=== PATIENT | male | born 1955 | race Caucasian/White ===

== ENCOUNTER 2019-06-15 09:41 | Emergency (ER) | payer OTHER, SELFPAY ==
[2019-06-15 09:42] VITALS: BP 129/73; PULSE 74; RESP 17; TEMP 36.1; O2SAT 97; BMI 32.3
--- NOTE | 2019-06-15 09:52 | RAD_ITS ---
STUDY: X-RAY - LEFT KNEE REASON FOR EXAM: Male, 63 years old. FALL FROM LADDER YESTERDAY, SWELLING AND PAIN, UNABLE TO BEAR WEIGHT TECHNIQUE: 4 view(s) of the knee. COMPARISON: None. FINDINGS: Normal visualized distal femur. Normal visualized proximal tibia and fibula. Normal proximal tibiofibular articulation. There is mild degenerative arthrosis of the medial femorotibial compartment. Normal lateral femorotibial compartment. There is mild degenerative arthrosis of the patellofemoral articulation. Minimal joint effusion. RAD/Knee 4 or More Views IMPRESSION: Degenerative arthrosis. Electronically Signed: Milo Cabrera, at 10:39 EST , Service support ,
--- NOTE | 2019-06-15 09:55 | ED.DCSUM_ITS ---
History of Present Illness Chief Complaint: Lower Extremity Injury Informant: Patient Onset: Yesterday Context: Gradual Onset Timing: Continuous Current Severity: Moderate Maximum Severity: Severe Narrative: The patient presents to the emergency department with left knee injury. He states that he was on a ladder yesterday. He was on the second or third step. The ladder was on soft ground and he lost his balance. He fell to the ground, landing on his left knee. He states since then, he is not been able to bear weight on it. He states he feels like he cannot extend the leg. He has not taken anything for pain. He did not strike his head. He is not on anticoagulants. Prior similar symptoms: No Recent Illness/Hospitalization: No Past Medical History - Allergies and Home Meds Allergies/Adverse Reactions: Allergies acetaminophen Allergy (Verified 06/15/19 09:42) Swelling Primary Care Physician: ANNIE,DEFINED [NON-STAFF] - Prior records reviewed: Yes Past Medical History: None Surgical History: noncontributory Smoking Status: Never smoker Review of Systems General: Denies: Chills, Fever, Sweats Eyes: Denies: Visual changes - bilaterally, Diplopia ENT: Denies: Rhinorrhea, Sore throat Cardiovascular: Denies: Chest pain, Palpitations Respiratory: Denies: Dyspnea, Cough, Dyspnea on exertion Gastrointestinal: Denies: Abdominal pain, Nausea, Vomiting, Diarrhea, Melena, Hematochezia Genitourinary: Denies: Dysuria, Hematuria, Frequency Musculoskeletal: Denies: Back pain, Extremity Pain Skin: Denies: Rash, Wounds Neurological: Denies: Headache, Weakness, Numbness Physical Exam Vital Signs/Narrative: Vital Signs Temp Pulse Resp BP Pulse Ox 06/15/19 09:42 97.0 F L 74 17 129/73 H 97 Inital Vital Signs reviewed: Yes General: Well nourished, Well developed, No Acute Distress Head: Normocephalic, Atraumatic Eyes: Perrl, EOMI ENT: Moist mucous membranes, No rhinorrhea Neck: Supple, Nontender Cardiovascular: Regular rate, Regular rhythm, No murmurs Respiratory: No distress, CTA bilaterally, Chest nontender Abdomen: Soft, Nontender, Nondistended, Normal bowel sounds Back: Nontender, Normal Inspection Extremities: No edema, Tenderness - Tenderness over the left knee. Unable to extend secondary to pain. Normal pulses. Skin: Normal color, No rash Neurological: Alert, Oriented x3, Cranial nerves II-XII grossly intact, Normal Strength, Normal Sensation Psychological: Normal affect, Normal Mood Diagnostic/Tx/Re-eval - Medical Decision Making Clinically, I do have suspicion for patellar tendon rupture. The patient's pain is in the posterior aspect of the knee, but he cannot extend the knee and does have a small effusion. There is no gross laxity of the knee. Plain films were obtained which show no fracture but the patella does appear to be more high rid ing. The patient will be treated conservatively with a knee immobilizer. He declined crutches because he states he Ilu has them in his car. He will be given outpatient orthopedic follow-up for reexamination. Impression 1. Left patellar tendon rupture status post fall ED Disposition - Plan for ED Patient: Instructions: Common Kneecap (Patella) Problems Prescriptions: Oxycodone [Oxyir] 5 mg PO Q6H PRN PRN 3 Days #12 tab PRN Reason: Pain Score 6-10/10 Prescription Printed Referrals: Pako Reid DO [STAFF PHYSICIAN] -
== END 2019-06-15 11:10 | disposition short-term general hospital (02) ==
LOC: ED 10:26
PROVIDERS: Emergency Provider Emergency Medicine; PCP Internal Medicine
DX: S76.112A Strain of left quadriceps muscle, fascia and tendon, initial encounter (principal); W11.XXXA Fall on and from ladder, initial encounter; Y93.9 Activity, unspecified
CPT/HCPCS: 73564; 99283

== ENCOUNTER → 2019-06-17 10:59 | Outpatient (CLI) | payer OTHER, SELFPAY ==
[2019-06-15 09:42] VITALS: BMI 32.3
--- NOTE | 2019-06-17 11:03 | VDLE_ITS ---
Reason For Study: pain RIGHT LEFT CFV is compressible, spontaneous, phasic, GSV is normal. competent and demonstrates normal CFV is compressible, spontaneous, phasic, augmentation. competent, and demonstrates normal Procedure augmentation. Exam performed in department. FV is compressible, spontaneous, phasic, The exam was diagnostic. competent and demonstrates normal A preliminary report was called and/or faxed augmentation. to Dr. Reid. POP V is compressible, spontaneous, phasic, competent and demonstrates normal augmentation. T/P Trunk is compressible. PTV is compressible. LT PerV is compressible. Interpretation Summary There is no evidence of left lower extremity deep vein thrombosis. Left great saphenous vein appears patent and compressible segmentally. Patent and compressible right common femoral vein Ordering Physician: Pako Reid Performed By: Domingo Reddy RVT
== END ==
LOC: CVS 11:01
PROVIDERS: PCP Internal Medicine; Referring Provider Orthopaedic Surgery; Visit Provider Orthopaedic Surgery
DX: M17.12 Unilateral primary osteoarthritis, left knee (principal); M79.605 Pain in left leg
CPT/HCPCS: 93971

== ENCOUNTER → 2019-07-12 10:27 | Outpatient (CLI) | payer OTHER, SELFPAY ==
[2019-06-15 09:42] VITALS: BMI 32.3
--- NOTE | 2019-07-12 10:44 | EKG12_ITS ---
Test Reason : PRE-OP Blood Pressure : / mmHG Vent. Rate : 059 BPM Atrial Rate : 059 BPM P-R Int : 172 ms QRS Dur : 088 ms QT Int : 446 ms P-R-T Axes : 008 -03 042 degrees QTc Int : 441 ms Sinus bradycardia Otherwise normal ECG No previous ECGs available Confirmed by KATHARINA LANIER, GRAHAM ([id number]), editor city NAZ LYNN ([id number]) on 07/19/2019 3:59:24 PM Referred By: Major Yates Confirmed By:GRAHAM POSADAS MD
[2019-07-12 11:39] LABS: Hematocrit 49.5 % (40-54); Hemoglobin 15.9 g/dL (13.0-16.5); Mean Corp Hgb Conc 32.1 g/dL (32-36); Mean Corpuscular Hgb 28.5 pg (27.0-32.0); Mean Corpuscular Volume 88.9 fL (80-94); Mean Platelet Vol. 9.1 fl (6.2-12.0); Platelet Count 253 K/mm3 (150-450); RBC Distribution Width CV 12.9 % (11.6-14.6); RBC Distribution Width SD 41.8 fl (35.1-43.9); Red Blood Count 5.57 M/mm3 (4.6-6.2); White Blood Count 5.6 K/mm3 (4.4-11.0)
[2019-07-12 12:00] LABS: Anion Gap 6 (5-15); BUN 15 mg/dL (7-18); BUN/Creat Ratio 13.3 RATIO (10-20); Chloride 102 mmol/L (98-107); Creatinine, Serum 1.13 mg/dL (0.70-1.30); EST Glomerular Filtration Rate 69 mL/min (>60); Est Glom Filt Rate - Afr Amer 84 mL/min (>60); Glucose 106 mg/dL (74-106); Potassium 4.3 mmol/L (3.5-5.1); Sodium Level 139 mmol/L (136-145)
== END ==
PROVIDERS: PCP Internal Medicine; Referring Provider Physician Assistant; Visit Provider Physician Assistant
DX: Z01.818 Encounter for other preprocedural examination (principal); Z01.810 Encounter for preprocedural cardiovascular examination
CPT/HCPCS: 36415; 80048; 85027; 93005

== ENCOUNTER → 2022-09-27 | Outpatient (CLI) | payer MEDICARE, OTHER, SELFPAY ==
--- NOTE | 2022-09-27 08:04 | CT_ITS ---
CT RIGHT LOWER EXTREMITY WITH 3-D IMAGING CLINICAL INDICATION: PRIMARY OSTEOARTHRITIS of the knee joint. TECHNIQUE: Axial CT images of the RIGHT lower extremity was performed without IV contrast material. Coronal and sagittal reformats as well as 3D reformats were provided. RADIATION DOSAGE (If Supplied By Facility): CTDIvol = ( 18.76 ) mGy, DLP = ( 1326.30 ) mGycm COMPARISON: FINDINGS: Bones: Imaging of the joint was obtained. There is a moderate degree of joint space narrowing in the superior lateral aspect of the joint space. Imaging of the right knee joint was obtained. There is a moderate degree of joint space narrowing involving the medial compartment of knee joint with a tiny subchondral cyst in the medial tibial plateau. Marked degree of osteoarthritis with spur formation at the patellofemoral joint. There is a 5.5 mm bony density in the joint space suggestive of joint mouse. Imaging of the ankle joint was obtained. No significant abnormality is seen. Soft Tissues: The deep soft tissue structures are unremarkable. The superficial soft tissues are unremarkable without evidence of edema, hematoma, or foreign body. CT/Extremity Lower without Contra IMPRESSION: Moderate degree of joint space narrowing involving the medial compartment of the knee joint as well as a marked degree of degenerative changes involving the patellofemoral joint. Findings suggestive of a 5.5 mm well-corticated bony density within the right knee joint. Electronically Signed: Milo Cabrera MD at 11:41 EDT ,
== END | disposition home or self-care (01) ==
PROVIDERS: PCP Internal Medicine; Referring Provider Physician Assistant; Visit Provider Physician Assistant
DX: M25.569 Pain in unspecified knee (principal); G89.29 Other chronic pain
CPT/HCPCS: 73700

== ENCOUNTER → 2022-10-28 | Outpatient (CLI) | payer MEDICARE, OTHER, SELFPAY ==
--- NOTE | 2022-10-28 06:58 | ECHOD_ITS ---
Reason For Study: A flutter Procedure This was a 2D Doppler, Color Flow transthoracic echocardiogram. Exam performed in department. Left Ventricle Normal size and thickness. The left ventricular ejection fraction is 65 %. Normal diastololic function. Right Ventricle Normal right ventricle. Atria The left atrium is mildly enlarged. Normal right atrium. Mitral Valve Moderate (2+) mitral valve insufficiency. Tricuspid Valve Mild tricuspid valve insufficiency. Normal pulmonary artery pressure. Aortic Valve Normal aortic valve. Pulmonic Valve Trivial pulmonic valve insufficiency. Great Vessels Mildly dilated aortic root. Pericardium/Pleural No pericardial effusion. MMode/2D Measurements & Calculations LVIDd: 4.4 cm IVSd: 1.1 cm Ao root diam: 3.5 cm LVIDs: 3.0 cm LVPWd: 1.0 cm RVDd: 4.4 cm FS: 33.0 % LAV(MOD-bp): 55.4 ml LVAd ap4: 32.3 cm2 LVAd ap2: 29.6 cm2 LAV(MOD-bp) Indexed: 24.7 ml/m2 LVLd ap4: 8.3 cm LVLd ap2: 7.7 cm LAV(MOD-sp2): 44.3 ml EDV(MOD-sp4): 104.1 ml EDV(MOD-sp2): 93.2 ml LAV(MOD-sp4): 58.1 ml EDV(sp4-el): 106.2 ml EDV(sp2-el): 96.2 ml LVAs ap4: 15.4 cm2 LVAs ap2: 15.0 cm2 LVLs ap4: 6.2 cm LVLs ap2: 6.5 cm ESV(MOD-sp4): 34.0 ml ESV(MOD-sp2): 29.9 ml ESV(sp4-el): 32.3 ml ESV(sp2-el): 29.3 ml EF(MOD-sp4): 67.4 % EF(MOD-sp2): 67.9 % EF(sp4-el): 69.6 % SV(MOD-sp4): 70.2 ml SV(MOD-sp2): 63.3 ml SV(sp4-el): 73.9 ml LA dimension(2D): 4.1 cm LA A4 area: 21.3 cm2 RA A4 area: 18.1 cm2 Time Measurements MV dec time: 0.18 sec Doppler Measurements & Calculations MV E max delbert: 90.3 cm/sec Lat Peak E' Delbert: 8.9 cm/sec Med Peak E' Delbert: 6.4 cm/sec MV A max delbert: 88.6 cm/sec E/E' lat: 10.1 E/E' med: 14.1 MV E/A: 1.0 MV dec slope: 491.9 cm/sec2 Ao V2 max: 157.2 cm/sec LV V1 max: 115.1 cm/sec Ao max P.9 mmHg LV V1 max P.3 mmHg Ao V2 mean: 106.0 cm/sec Ao mean P.2 mmHg Ao V2 VTI: 38.3 cm PA V2 max: 108.0 cm/sec TR max delbert: 211.5 cm/sec TR max P.0 mmHg ECHO/Echo Complete Interpretation Summary The left ventricular ejection fraction is 65 %. The left atrium is mildly enlarged. Moderate (2+) mitral valve insufficiency. Mildly dilated aortic root. Ordering Physician: Gris Casey Referring Physician: Jarek Mccoy Performed By: Charu Renee, BIANCA, RVT
--- NOTE | 2022-10-28 11:37 | STRESSREP ---
Stress Test Report Date: 10/28/2022 Procedure: Pharmacologic stress nuclear imaging study Indications: Dyspnea Consent: Per the patient Procedure: The patient underwent pharmacologic (Regadenoson 0.4mg ) evaluation with a peak heart rate of 91 beats per minute (60%predicted maximal heart rate) and a peak blood pressure of 162/84 mmHg. The baseline ECG demonstrated normal sinus rhythm. The peak pharmacologic ECG demonstrated no ischemic changes. There were no cardiac dysrhythmias pretest, during pharmacologic infusion, or recovery. There was no complaint of chest discomfort during pharmacologic infusion or recovery. The patient was injected with 14.6 millicuries of technetium 99m Cardiolite and subsequently rest SPECT Cardiolite nuclear imaging was obtained in the horizontal long, vertical long, and short axis views. The patient underwent pharmacologic (Regadenoson) evaluation. The patient was injected with 44.7 millicuries of technetium 99m Cardiolite and subsequently stress SPECT Cardiolite nuclear imaging was obtained in the horizontal long, vertical long, and short axis views. No gated study was performed. The examination was stopped secondary to completion of protocol. Rest and stress SPECT Cardiolite nuclear imaging status post realignment and normalization demonstrate a small reversible apical perfusion defect that may denote a small area of ischemia. No gated imaging was performed. Impression: 1. Pharmacologic (Regadenoson) evaluation 2. Peak pharmacologic ECG with no ischemic changes. 3. There were no cardiac dysrhythmias pretest, during pharmacologic infusion, or recovery. 5. Small reversible perfusion defect at the apex that may denote a small area of ischemia. 6. No gated study was performed. This note was generated with uTrail meation software. It may contain incorrect words, spelling, and punctuation that were not noted in checking the note before signing.
== END | disposition home or self-care (01) ==
LOC: CVS 06:53
PROVIDERS: PCP Internal Medicine; Referring Provider Internal Medicine Cardiovascular Disease; Visit Provider Internal Medicine Cardiovascular Disease
DX: Z01.810 Encounter for preprocedural cardiovascular examination (principal); I48.92 Unspecified atrial flutter; R06.00 Dyspnea, unspecified
CPT/HCPCS: 78452; 93017; 93306; A9500; A4216; J2785

== ENCOUNTER → 2022-12-04 | Outpatient (CLI) | payer MEDICARE, OTHER, SELFPAY ==
--- NOTE | 2022-12-04 09:07 | EKG12_ITS ---
Test Reason : PRE-OP Blood Pressure : / mmHG Vent. Rate : 054 BPM Atrial Rate : 054 BPM P-R Int : 176 ms QRS Dur : 086 ms QT Int : 434 ms P-R-T Axes : 075 000 048 degrees QTc Int : 411 ms Sinus bradycardia Otherwise normal ECG Confirmed by KATHARINA LANIER, GRHAAM ([id number]), editorial specialist SARAH RIVERA ([id number]) on 12/04/2022 2:21:49 PM Referred By: Major Yates Confirmed By:GRAHAM POSADAS MD
[2022-12-04 11:22] LABS: Absolute Lymphocyte Count 1.14 X10^3/uL (0.83-4.51); Absolute Neutrophil Count 3.2 X10^3/uL (2.0-7.7); Basophil# 0.04 X10^3/uL; Basophil% 0.8 % (0-1); Eosinophil# 0.07 X10^3/uL; Eosinophils% 1.5 % (0-5); Hemoglobin 15.4 g/dL (13.0-16.5); Lymphocyte # 1.14 X10^3/ul (0.83-4.51); Lymphocyte % 23.8 % (19-41); Mean Corp Hgb Conc 30.8 g/dL (32-36); Mean Corpuscular Hgb 28.8 pg (27.0-32.0); Mean Corpuscular Volume 93.6 fL (80-94); Mean Platelet Vol. 9.4 fl (6.2-12.0); Monocyte# 0.37 X10^3/uL; Monocyte% 7.7 % (0-10); NRBC Flagged by Analyzer 0 % (0-5); Neutrophil # 3.15 X10^3/uL (2.7-7.7); Neutrophil % 65.8 % (47-70); Platelet Count 228 K/mm3 (150-450); RBC Distribution Width CV 13.1 % (11.6-14.6); RBC Distribution Width SD 44.6 fl (35.1-43.9); Red Blood Count 5.34 M/mm3 (4.6-6.2); White Blood Count 4.8 K/mm3 (4.4-11.0)
[2022-12-04 12:17] LABS: Anion Gap 3 (5-15); BUN 17 mg/dL (7-18); Calcium,Total 8.9 mg/dL (8.5-10.1); Chloride 108 mmol/L (98-107); Creatinine, Serum 1.06 mg/dL (0.70-1.30); EST Glomerular Filtration Rate 74 mL/min (>60); Est Glom Filt Rate - Afr Amer 89 mL/min (>60); Glucose 80 mg/dL (74-106); Potassium 4.4 mmol/L (3.5-5.1); Sodium Level 140 mmol/L (136-145)
[2022-12-04 16:11] LABS: Hemoglobin A1c 5.9 % (3.8-5.6)
== END | disposition home or self-care (01) ==
LOC: PSN 09:06
PROVIDERS: PCP Internal Medicine; Referring Provider Physician Assistant; Visit Provider Physician Assistant
DX: Z01.810 Encounter for preprocedural cardiovascular examination (principal)
CPT/HCPCS: 36415; 80048; 83036; 85025; 93005

== ENCOUNTER 2022-12-09 15:04 | Outpatient (CLI) | payer MEDICARE, OTHER, SELFPAY ==
--- NOTE | 2022-12-09 07:30 | KNEE_PTH ---
PATIENT: NANY WEAVER LOC: [facility] U#:[id number] AGE/SX: 67/M ROOM: RE12/09/[address]: Dr. Pako Reid DO : 1955 BED: DIS: 12/09/2022 SPEC #: [id number] RECD: 12/10/22 09:53 STATUS: DENG REGibson #: [id number] DONNA: 12/09/22 07:[address]: Pako Reid DEPT: SURGICAL PATHOLOGY RECD BY: Katrin Momin ENTERED: 12/10/22 09:53 SP TYPE: TOTAL KNEE OTHR DR: Dr. Jarek Mccoy MD [facility] Tissues: Knee, NOS Procedures: Decalcification bone/plaque Surgery Specimen Level IV HEADER OPERATION: Right robotic assisted right total knee arthroplasty PRE-OP DIAGNOSIS: Unilateral primary osteoarthritis right knee TISSUE SUBMITTED: Bone and soft tissue right knee MICROSCOPIC DIAGNOSIS Bone and tissue of right knee, total knee resection: Severe degenerative joint disease. Mild synovial hyperplasia. AM:elena 12/13/2022 MICROSCOPIC DESCRIPTION Slides are reviewed. GROSS DESCRIPTION Received is one container designated bone and soft tissue right knee. The specimen consists of multiple fragments of kirkland-yellow bone measuring in aggregate 9.0 x 9.0 x 3.5 cm. Also in the specimen container are multiple fragments of yellow-white soft tissue measuring in aggregate 0.9 x 9.0 x 3.0 cm. A number of bony fragments contain articular surfaces consistent with tibial plateau and femoral condyle and displaying prominent osteophyte formation, eburnation and bone erosion. Chief Medical Director sections are submitted in two cassettes as follows: 1 - soft tissue, 2 - bone after decalcification. / SJ:elena 12/10/2022 TC:5 [facility]: [id number]
== END 2022-12-09 23:59 | disposition home or self-care (01) ==
LOC: LABSPEC 15:06
PROVIDERS: PCP Internal Medicine; Referring Provider Orthopaedic Surgery; Visit Provider Orthopaedic Surgery
DX: M17.11 Unilateral primary osteoarthritis, right knee (principal)
CPT/HCPCS: 88305; 88311

== ENCOUNTER 2022-12-17 03:25 | Emergency (ER) | payer MEDICARE, OTHER, SELFPAY ==
[2022-12-17 03:29] VITALS: BP 129/65; PULSE 64; RESP 18; TEMP 35.8; O2SAT 99; BMI 34.0
--- NOTE | 2022-12-17 04:02 | EDS_ITS ---
HPI History of Present Illness Chief Complaint: Other, Pain/Inj Informant: patient and spouse/S.O. Narrative Narrative: Patient is a 67-year-old male with past medical history of obstructive sleep apnea on CPAP as well as GERD and autism. He underwent a right knee replacement roughly 1 week ago. He states that he was on Percocet for pain but stopped this 3 days ago as he had night terrors after taking it 1 night. He states that he had similar night terrors for 3 nights in a row despite stopping it multiple days ago. He states he is concerned he is going through withdrawal but he denies any nausea vomiting diaphoresis palpitations or loose stool. He states his pain has worsened since he has stopped taking the Percocet and as he is not sure to take for the pain comes in for evaluation [facility] Medical History (Updated 12/18/22 @ 00:[address] Gabriel Espinal, ) Atrial flutter GERD (gastroesophageal reflux disease) ANGIE on CPAP Preoperative cardiovascular examination Home Medications omeprazole 20 mg capsule,delayed release 20 mg PO QODAY 06/15/19 [History Last Taken Unknown] sildenafil 25 mg tablet 25 mg PO DAILY PRN sexual activity 10/14/22 [History Last Taken Unknown] amlodipine 2.5 mg tablet 2.5 mg PO DAILY #30 tabs 10/29/22 [Rx Last Taken Unknown] gabapentin 100 mg capsule 100 mg PO TID 30 days #90 caps 12/17/22 [Rx Last Taken Unknown] oxycodone 10 mg tablet 10 mg PO Q6H PRN pain 3 days #12 tabs 12/17/22 [Rx Last Taken Unknown] Allergy/AdvReac Type Severity Reaction Status Date / Time No Known Allergies Allergy Verified 12/17/22 03:27 Family History (Updated 10/14/22 @ 08:40 by Kaylie Denton) Mother Cancer Panceatic Father Colon cancer Surgical History (Updated 10/14/22 @ 08:36 by Kaylie Denton) History of hernia repair History of tonsillectomy Social History (Updated 10/16/22 @ 09:29 by Kaylie Denton) Smoking Status: Never smoker alcohol intake: current details: 3 glasses of wine, 3 shots of liquor per week substance use type: former substance user and marijuana caffeine: Yes Type: tea Number of servings: 1 ROS ROS ED Constitutional Constitutional ED: Denies chills or fever(s) Eyes Eyes: Denies change in vision ENT ENT ED: Denies sore throat Cardiovascular Cardiovascular: Denies chest pain or palpitations Respiratory/Chest Respiratory/Chest: Denies cough or dyspnea Gastrointestinal Gastrointestinal: Reports constipation; Denies abdominal pain, diarrhea, nausea or vomiting Genitourinary Genitourinary ED: Denies dysuria Musculoskeletal Musculoskeletal: Reports arthralgias and other Details: Positive right knee pain and swelling Integumentary Reports other Details: Positive swelling and redness right knee ; Denies rash Neurologic Neurologic: Denies headache(s) or paresthesias Hematologic/Lymphatic Hematologic/Lymphatic: Denies easy bleeding or easy bruising EXAM Physical Exam Const Vital Signs: 12/17/22 03:29 12/17/22 03:34 Temperature 96.4 F L Temperature Source Temporal Pulse Rate 64 Respiratory Rate 18 Respiratory Effort Normal Respiratory Pattern Normal Blood Pressure 129/65 H Blood Pressure Mean 86 Pulse Ox 99 Oxygen Delivery Method Room Air Positive well nourished and well developed General Appearance ED: well developed HEENT Reports moist mucous membranes Eyes PERRL and EOMs intact bilaterally General Eye ED: Negative for scleral icterus Neck supple Resp normal respiratory effort and clear to auscultation bilaterally Cardio regular rate and regular rhythm Rate: other Other Details: Radial and carotid pulses are equal and symmetric GI non-tender and non-distended GI Narrative: Abdomen is soft nontender nondistended with hypoactive bowel sounds no voluntary guarding or rigidity no pulsatile mass Auscultation: hypoactive bowel sounds Palpation: soft Extremity Extremity Narrative: Right lower extremity is neurovascularly intact. Patient has soft tissue swelling with erythema and warmth to the anterior aspect of the right knee most consistent with hematoma formation. There is surgical incision present as well that is clean dry and intact. Patient has a blister to the right lateral aspect of the right knee draining serous fluid without secondary changes to suggest infection. Neuro oriented x3 and CN's II-XII intact bilaterally Sensorium / Orientation: alert Psych mental status grossly normal Skin Skin Narrative: Soft tissue changes to the right leg as documented above Capillary refill remains less than 3 seconds bilaterally MDM MDM MDM Narrative Medical decision making narrative: Patient presented to the ER with stable vitals and postoperative changes to his right knee. He does not physical exam findings concerning for infection or DVT. He was concerned about withdrawal symptoms but he does not have physical exam findings to suggest this either. Therefore this time I do not feel there is need for imaging or laboratory studies as my concern for postoperative infection/septic joint versus DVT is low. I discussed with patient the side effects of pain medication and explained that his symptoms do not correlate with withdrawal. After he and his he is agreeable to starting the pain medication up once again and therefore he will be prescribed oxycodone and gabapentin will be added as well for improved pain control but as concern for postoperative infection or DVT is low he is otherwise safe for discharge. History & Record Review Discussion w/independent historian: Patient and Significant other Discharge Plan Triage Chief Complaint: Other, Pain/Inj ED Provider: Gabriel Espinal Dx/Rx/DC Orders Clinical Impression: Post-operative pain, ANGIE on CPAP Instructions: Taking Opioid Medicines, Managing Post-Op Pain at Home Prescriptions: New oxycodone 10 mg tablet 10 mg PO Q6H PRN (Reason: pain) 3 Days Qty: 12 0RF gabapentin 100 mg capsule 100 mg PO TID 30 Days Qty: 90 0RF No Action sildenafil 25 mg tablet 25 mg PO DAILY PRN (Reason: sexual activity) Rx Instructions: administer 30 minutes to 4 hours before activity omeprazole 20 MG capsule,delayed release(DR/EC) 20 mg PO QODAY amlodipine 2.5 mg tablet 2.5 mg PO DAILY Qty: 30 6RF Primary Care Provider: Jarek Mccoy Referrals: Jarek Mccoy MD [Primary Care Provider] - Activity Restrictions/Additional Instructions: Your wound appears to be healing properly 1 week out from joint replacement. Please follow-up with your orthopedic surgeon as directed. Continue the oxycodone and gabapentin that were prescribed for pain control. If you develop a fever over 100.4 or have any further concerns please return for repeat evaluation. Disposition Disposition: Home, Self Care Discharge Date/Time: 12/17/22 04:26
[2022-12-17] MEDS: oxyCODONE 5 MG Tablet 10 MG PO (04:17)
[2022-12-17] MEDS: Gabapentin 100 MG Capsule PO (04:17)
== END 2022-12-17 04:26 | disposition home or self-care (01) ==
PROVIDERS: Emergency Provider Emergency Medicine; PCP Internal Medicine; Visit Provider Emergency Medicine
DX: M25.561 Pain in right knee (principal); G89.18 Other acute postprocedural pain; G47.33 Obstructive sleep apnea (adult) (pediatric); Z96.651 Presence of right artificial knee joint
CPT/HCPCS: 99284

== ENCOUNTER → 2023-01-07 | Outpatient (CLI) | payer MEDICARE, OTHER, SELFPAY ==
--- NOTE | 2023-01-07 10:32 | VDLE_ITS ---
Reason For Study: RLE PAIN RIGHT GSV is normal. CFV is compressible, spontaneous, phasic, competent and demonstrates normal augmentation. FV is compressible, spontaneous, phasic, competent and demonstrates normal augmentation. POP V is compressible, spontaneous, phasic, competent and demonstrates normal augmentation. T/P Trunk is compressible. PTV is compressible. RT PerV is compressible. Procedure This is a venous duplex using B-mode, color flow and spectral Doppler. Exam performed in department. A preliminary report was called and/or faxed to GERALDINE NÉSTOR @ [phone] @ 11:05 AM. VL/Venous Duplex US, Unilateral Interpretation Summary Deep veins of the right lower extremity are patent and compressible segmentally . There is no evidence of right lower extremity deep vein thrombosis. The right great sapheno us vein appears patent and compressible segmentally. Ordering Physician: Major Yates Referring Physician: Jarek Mccoy Performed By: Lani Fletcher RDCS, RVT
== END | disposition home or self-care (01) ==
LOC: CVS 10:26
PROVIDERS: PCP Internal Medicine; Referring Provider Physician Assistant; Visit Provider Physician Assistant
DX: M79.661 Pain in right lower leg (principal); Z96.651 Presence of right artificial knee joint
CPT/HCPCS: 93971

== ENCOUNTER 2023-09-23 18:07 | Emergency (ER) | payer MEDICARE, OTHER, SELFPAY ==
[2023-09-23 18:08] VITALS: BP 125/78; PULSE 67; RESP 17; TEMP 36.1; O2SAT 100; BMI 35.2
--- NOTE | 2023-09-23 18:55 | RAD_ITS ---
INDICATION: Pain EXAMINATION/TECHNIQUE: X-RAY - RIGHT XR Foot Min 3 Views COMPARISON: None. FINDINGS: No acute fracture or malalignment. No blastic or lytic lesions. Mild degenerative changes of the midfoot and first metatarsophalangeal joint. Plantar heel spur. The soft tissues are unremarkable. RAD/Foot min 3 Views IMPRESSION: No acute fracture or malalignment. Mild degenerative changes of the midfoot and first MTP joint.. Electronically Signed: Manpreet Patel MD at 19:15 EDT ,
--- NOTE | 2023-09-23 21:05 | ED.VIS.LOWEX ---
HPI History of Present Illness Chief Complaint: Lower Extremity Injury Detail of Chief Complaint: Right foot injury Informant: patient Narrative Narrative: Patient presents with right foot injury that occurred 8 days ago. Patient states that he dropped a water pump weighing about 15 pounds onto his foot and he was wearing some crocs sandals. Patient states the foot turned black and blue and he has been hobbling around. Today noticed some redness to the dorsum of the foot and comes in for evaluation. Denies fevers chills or sweats. PFSH PFSH Medical History (Updated 09/23/23 @ 21:[address] Maritza Galaviz, DO) ANGIE on CPAP GERD (gastroesophageal reflux disease) Atrial flutter Preoperative cardiovascular examination Home Medications ?Medication ?Instructions ?Recorded ?Last Taken ?Type omeprazole 20 mg capsule,delayed 20 mg PO QODAY 06/15/19 Unknown History release sildenafil 25 mg tablet 25 mg PO DAILY PRN sexual activity 10/14/22 Unknown History amlodipine 2.5 mg tablet 2.5 mg PO DAILY #30 tabs 10/29/22 Unknown Rx gabapentin 100 mg capsule 100 mg PO TID 30 days #90 caps 12/17/22 Unknown Rx oxycodone 10 mg tablet 10 mg PO Q6H PRN pain 3 days #12 12/17/22 Unknown Rx tabs cephalexin 500 mg capsule 500 mg PO Q6 #40 CAPSULES 09/23/23 Unknown Rx Allergy/AdvReac Type Severity Reaction Status Date / Time No Known Allergies Allergy Verified 09/23/23 18:10 Family History (Updated 10/14/22 @ 08:40 by Kaylie Denton) Mother Cancer Panceatic Father Colon cancer Surgical History (Updated 10/14/22 @ 08:36 by Kaylie Denton) History of hernia repair History of tonsillectomy Social History (Updated 10/16/22 @ 09:29 by Kaylie Denton) Smoking Status: Never smoker alcohol intake: current details: 3 glasses of wine, 3 shots of liquor per week substance use type: former substance user and marijuana caffeine: Yes Type: tea Number of servings: 1 ROS ROS ED Review of Systems ROS Unobtainable: other Constitutional Constitutional ED: Reports lethargy; Denies chills, fever(s), sweats or weight loss Eyes Eyes: Denies blurry vision, change in vision or diplopia ENT ENT ED: Denies rhinorrhea or sore throat Cardiovascular Cardiovascular: Denies chest pain, orthopnea or racing heartbeat Respiratory/Chest Respiratory/Chest: Denies cough, dyspnea, dyspnea on exertion, orthopnea or sputum Gastrointestinal Gastrointestinal: Denies abdominal pain, diarrhea, nausea or vomiting Genitourinary Genitourinary ED: Denies dysuria, hematuria or urinary frequency Musculoskeletal Musculoskeletal: Reports other Details: Right foot injury/pain ; Denies arthralgias, back pain, myalgias or neck pain Integumentary Reports other; Denies abscess, Abrasions or rash Neurologic Neurologic: Denies headache(s) or weakness Psychiatric Psychiatric: Denies anxiety, depression or suicidal thoughts Endocrine Endocrinology: Denies polydipsia, polyphagia or polyuria Hematologic/Lymphatic Hematologic/Lymphatic: Denies easy bleeding, easy bruising or lymphadenopathy Allergic/Immunologic Allergic/Immunologic ED: Denies mouth swelling, tongue swelling or urticaria EXAM Physical Exam Const Vital Signs: 09/23/23 18:08 Temperature 97 F L Temperature Source Temporal Pulse Rate 67 Respiratory Rate 17 Blood Pressure 125/78 H Blood Pressure Mean 93 Pulse Ox 100 Oxygen Delivery Method Room Air Positive well nourished and well developed General Appearance ED: well developed and NAD HEENT Reports TM's clear and moist mucous membranes normocephalic and atraumatic; Negative for trauma or tenderness Tympanic Membrane ED: Yes TM's clear Eyes PERRL and EOMs intact bilaterally General Eye ED: Negative for pale conjunctiva or scleral icterus Neck no lymphadenopathy, supple and no JVD General: Negative for tenderness Chest Wall inspection of chest normal and palpation of chest normal Chest: Negative for tenderness Resp normal respiratory effort and clear to auscultation bilaterally Effort and Inspection: Negative for respiratory distress or pain with movement Auscultation: Negative for rhonchi, wheezes or diminished lung sounds Cardio regular rate, regular rhythm, S1 normal heart sound, S2 normal heart sound and no murmurs Peripheral Pulses: pulses 2+ throughout GI normal to inspection, nondistended, normoactive bowel sounds, soft to palpation, non-tender, non-distended and no masses Back/Spine no CVA tenderness and no thoracic nor lumbar tenderness Extremity Extremity Narrative: Right foot-patient has some diffuse ecchymosis and bruising in different stages of healing to the dorsum of the foot and toes. There is surrounding erythema to the dorsal lateral aspect of the foot without any abscess formation. Neurovascular intact distally. No obvious deformity. General Extremety ED: Negative for edema General Extremity: Negative for edema Neuro oriented x3, CN's II-XII intact bilaterally, no sensory deficits noted and gait normal Sensorium / Orientation: awake, alert, oriented to person, oriented to place and oriented to time Motor Exam: strength 5/5 throughout and strength abnormal Psych mental status grossly normal Skin no rashes or lesions noted and no wounds MDM MDM MDM Narrative Medical decision making narrative: Patient with injury to foot. X-rays negative for fracture. He does appear to be developing a cellulitis to the dorsum of the foot. I will start him on Keflex. First dose in the emergency department. Recommended he follow-up with his primary care physician or I could refer him to podiatry and he is he and his state that they have a steam shovel runner that they use and Jeny and they would like to follow-up with them. Patient tells me has crutches at home. He does not want postop shoe for pain medications. Radiography Diagnostic Testing: Clinical Impression(s) from Imaging Studies Foot X-Ray 09/23/23 18:55 IMPRESSION: No acute fracture or malalignment. Mild degenerative changes of the midfoot and first MTP joint.. Electronically Signed: Manpreet Patel MD at 19:15 EDT , Three-view x-rays of the right foot obtained interpreted by myself as no acute fractures or dislocations. Radiology was in agreement. He had mild degenerative changes of the midfoot and first metatarsal phalangeal joint. Discharge Plan Triage Chief Complaint: Lower Extremity Injury ED Provider: Maritza Galaviz Dx/Rx/DC Orders Clinical Impression: Contusion of foot, right, Cellulitis of foot, right Instructions: Cellulitis Dc, Bone Contusion Prescriptions: New cephalexin 500 mg capsule 500 mg PO Q6 Qty: 40 0RF No Action sildenafil 25 mg tablet 25 mg PO DAILY PRN (Reason: sexual activity) Rx Instructions: administer 30 minutes to 4 hours before activity omeprazole 20 MG capsule,delayed release(DR/EC) 20 mg PO QODAY oxycodone 10 mg tablet 10 mg PO Q6H PRN (Reason: pain) 3 Days Qty: 12 0RF gabapentin 100 mg capsule 100 mg PO TID 30 Days Qty: 90 0RF amlodipine 2.5 mg tablet 2.5 mg PO DAILY Qty: 30 6RF Primary Care Provider: Jarek Mccoy Referrals: Jarek Mccoy MD [Primary Care Provider] - 3-5 Days Activity Restrictions/Additional Instructions: Follow-up with podiatry if persistent and ongoing pain within next 5 to 7 days. Print Language: Hungarian Disposition Disposition: Home, Self Care
[2023-09-23] MEDS: Cephalexin 250 MG Capsule 500 MG PO (21:13)
== END 2023-09-23 21:18 | disposition home or self-care (01) ==
LOC: ED 21:12
PROVIDERS: Emergency Provider Emergency Medicine; PCP Internal Medicine; Visit Provider Emergency Medicine
DX: S90.31XA Contusion of right foot, initial encounter (principal); W22.8XXA Striking against or struck by other objects, initial encounter; L03.115 Cellulitis of right lower limb
CPT/HCPCS: 73630; 99282

== ENCOUNTER 2025-03-09 15:58 | Emergency (ER) | payer MEDICARE, OTHER, SELFPAY ==
[2025-03-09 15:59] VITALS: BP 120/70; PULSE 66; RESP 16; TEMP 36.6; O2SAT 99; BMI 34.6
--- NOTE | 2025-03-09 16:31 | EX.ED.GUMALE ---
HPI History of Present Illness Chief Complaint: Complaint Informant: patient Pain Onset: Days Context: Gradual Onset Current Severity: Mild Maximum Severity: Mild Narrative Narrative: 69-year-old male history of BPH. Has had hematuria last several days. Said 2 UTIs over the last year. Was sent in by his primary care physician. Denies any back pain. No history of kidney stones. No prior bladder or urologic surgery. He is on no blood thinners. Denies any bruising. Prior similar symptoms: Yes Recent Illness/Hospitalization: No PFSH PFS Medical History (Updated 03/09/25 @ 18:[address] Cesario Roland MD) Non-smoker Migraines ANGIE on CPAP GERD (gastroesophageal reflux disease) Atrial flutter Preoperative cardiovascular examination Home Medications ?Medication ?Instructions ?Recorded ?Last Taken ?Type omeprazole 20 mg capsule,delayed 20 mg PO QODAY 06/15/19 Unknown History release sildenafil 25 mg tablet 25 mg PO DAILY PRN sexual activity 10/14/22 Unknown History amlodipine 2.5 mg tablet 2.5 mg PO DAILY #30 tabs 10/29/22 Unknown Rx gabapentin 100 mg capsule 100 mg PO TID 30 days #90 caps 12/17/22 Unknown Rx oxycodone 10 mg tablet 10 mg PO Q6H PRN pain 3 days #12 12/17/22 Unknown Rx tabs cephalexin 500 mg capsule 500 mg PO Q6 #40 CAPSULES 09/23/23 Unknown Rx ciprofloxacin HCl 500 mg tablet 500 mg PO BID UTI 10 days #20 tabs 03/09/25 Unknown Rx (Cipro) Allergy/AdvReac Type Severity Reaction Status Date / Time No Known Allergies Allergy Verified 03/09/25 16:02 Family History Mother Cancer Panceatic Father Colon cancer Surgical History History of hernia repair History of tonsillectomy Social History Smoking Status: Never smoker alcohol intake: current details: 3 glasses of wine, 3 shots of liquor per week substance use type: former substance user and marijuana caffeine: Yes Type: tea Number of servings: 1 ROS ROS ED Constitutional Constitutional ED: Denies chills or fever(s) Eyes Eyes: Denies blurry vision ENT ENT ED: Denies ear pain Cardiovascular Cardiovascular: Denies chest pain Respiratory/Chest Respiratory/Chest: Denies cough or dyspnea Gastrointestinal Gastrointestinal: Denies abdominal pain Genitourinary Genitourinary ED: Reports dysuria and hematuria Musculoskeletal Musculoskeletal: Denies arthralgias or back pain Integumentary Denies abscess or rash Neurologic Neurologic: Denies headache(s) Psychiatric Psychiatric: Denies anxiety or depression Endocrine Endocrinology: Denies polydipsia Hematologic/Lymphatic Hematologic/Lymphatic: Denies easy bleeding, easy bruising or lymphadenopathy Allergic/Immunologic Allergic/Immunologic ED: Denies mouth swelling, tongue swelling or urticaria EXAM Physical Exam Narrative Exam Narrative: 69-year-old male sitting upright in bed vital signs stable afebrile. No acute distress. H EENT exam pupils round react light. Moist rehemorrhage. Neck nontender no lymphadenopathy. Back nontender no CVA tenderness. Lungs clear to auscultation bilaterally. Heart regular rhythm rate about 65 no murmur. Chest wall ribs nontender. Abdomen soft not distended no bowel sounds without peritoneal signs. Periumbilical hernia. Spontaneously reduces. Moving all 4 extremities. Nontender no edema. Normal strength and range of motion. Neurologically awake alert. Answering questions following commands. Very benign exam. Const Vital Signs: 03/09/25 15:59 03/09/25 17:01 Temperature 97.9 F 99.1 F Temperature Source Temporal Oral Pulse Rate 66 58 L Respiratory Rate 16 20 H Blood Pressure 120/70 112/74 Blood Pressure Mean 86 86 Pulse Ox 99 95 Oxygen Delivery Method Room Air Room Air MDM MDM MDM Narrative Medical decision making narrative: 69-year-old male hematuria concern for UTI versus other etiologies. Due to his age and not having recent labs obtain a CBC and a chemistry. Check his kidney function blood count. UA will be obtained for possible UTI. I do not think he needs imaging because this does not sound like a kidney stone. Repeat exam patient doing well around 6:42 PM. We discussed his test results. Urine culture be sent. He will be started on antibiotic for the UTI. Outpatient follow-up with his primary care physician. History & Record Review Discussion w/independent historian: Patient and Family Additional record(s) reviewed:: Prior inpatient record, Prior outpatient record, Prior ED visit and Prior labs Lab Data Attestation: I reviewed the patient's lab results. Lab results narrative: CBC unremarkable. White count of 6. H&H of 15 and 46. Platelets 266. Chemistries show potassium of 5.8 but was hemolyzed. Normal BUN of 19 and creatinine of 1.1. Glucose 101. Urinalysis shows positive nitrates. 500 leukocyte esterase. 10-25 red cells. 50-100 white cells. 2+ bacteria. Urine culture will be sent. Labs: Laboratory Results - last 24 hr 03/09/25 16:50 WBC 6.2 RBC 5.27 Hgb 15.6 Hct 46.0 MCV 87.3 MCH 29.6 MCHC 33.9 RDW Std Deviation 41.8 RDW Coeff of [place] 13.2 Plt Count 266 MPV 9.8 Immature Gran % (Auto) 0.200 Neut % (Auto) 71.3 H Lymph % (Auto) 20.0 [place] % (Auto) 5.8 Eos % (Auto) 1.4 Baso % (Auto) 1.3 H Absolute Neuts (auto) 4.4 Absolute Lymphs (auto) 1.24 Nucleated RBC % 0 Sodium 135 Potassium 5.8 H Chloride 105 Carbon Dioxide 19.6 L Anion Gap 11 BUN 19 Creatinine 1.12 Estim Creat Clear Calc 74.97 Est GFR (MDRD) Non-Af 70 BUN/Creatinine Ratio 16.6 Glucose 101 H Calcium 9.0 Urine Color Yellow Urine Clarity Sl. Cloudy Urine pH 5.0 Ur Specific [place] 1.015 Urine Protein 30 H Urine Glucose (UA) Normal Urine Ketones Negative Urine Occult Blood 50 H Urine Nitrite Positive H Urine Bilirubin 3 H Urine Urobilinogen 4 H Ur Leukocyte Esterase 500 H Urine RBC 10-25 SEEN Urine WBC 50-100 SEEN Ur Squamous Epith Cells 0-5 SEEN Urine Bacteria 2+ Urine Mucus 0 SEEN Discharge Plan Triage Chief Complaint: Complaint ED Provider: Cesario Roland Dx/Rx/DC Orders Clinical Impression: Hematuria, Acute UTI, History of benign prostatic hyperplasia Instructions: ED Hematuria, ED Urinary Tract Infections in Men Prescriptions: New ciprofloxacin HCl [Cipro] 500 mg tablet 500 mg PO BID 10 Days Qty: 20 0RF No Action sildenafil 25 mg tablet 25 mg PO DAILY PRN (Reason: sexual activity) Rx Instructions: administer 30 minutes to 4 hours before activity omeprazole 20 MG capsule,delayed release(DR/EC) 20 mg PO QODAY oxycodone 10 mg tablet 10 mg PO Q6H PRN (Reason: pain) 3 Days Qty: 12 0RF gabapentin 100 mg capsule 100 mg PO TID 30 Days Qty: 90 0RF cephalexin 500 mg capsule 500 mg PO Q6 Qty: 40 0RF amlodipine 2.5 mg tablet 2.5 mg PO DAILY Qty: 30 6RF Primary Care Provider: Jarek Mccoy Referrals: Jarek Mccoy MD [Primary Care Provider, Internal Medicine] - 1-2 Weeks Activity Restrictions/Additional Instructions: Urinary tract infection. Urine culture be sent. He will be started on antibiotics Cipro 1 pill twice a day for 10 days. Follow-up with your doctor to ensure you are improving. Hope you feel a lot worse. Plenty of fluids. Print Language: Sinhala Disposition Disposition: Home, Self Care
[2025-03-09 16:59] LABS: Mucous, Urine 0 SEEN /hpf (<or=2+)
[2025-03-09 17:01] VITALS: BP 112/74; PULSE 58; RESP 20; TEMP 37.3; O2SAT 95
[2025-03-09 17:08] LABS: Hematocrit 46.0 % (40-54); Hemoglobin 15.6 g/dL (13.0-16.5); Immature Granulocytes Count 0.010 X10^3/uL (0.0-0.0); Mean Corp Hgb Conc 33.9 g/dL (32-36); Mean Corpuscular Volume 87.3 fL (80-94); Mean Platelet Vol. 9.8 fl (6.2-12.0); NRBC Flagged by Analyzer 0 % (0-5); Platelet Count 266 K/mm3 (150-450); RBC Distribution Width CV 13.2 % (11.6-14.6); RBC Distribution Width SD 41.8 fl (35.1-43.9); Red Blood Count 5.27 M/mm3 (4.6-6.2); White Blood Count 6.2 K/mm3 (4.4-11.0)
[2025-03-09 17:18] LABS: Color, Urine Yellow (Yellow); Glucose, Dipstick Normal (Normal); Ketone-Dipstick Negative (Negative); Leukocyte Esterase-Dipstick 500 /ul (Negative); Nitrite-Dipstick Positive (Negative); Occult Blood-Urine 50 /ul (Negative); Protein-Dipstick 30 mg/dl (Negative); Specific Gravity, Urine 1.015 (1.002-1.030)
[2025-03-09 17:26] LABS: Urine Bilirubin Dipstick 3 mg/dL (Negative)
[2025-03-09 17:43] LABS: Anion Gap 11 (5-15); BUN 19 mg/dL (4-19); BUN/Creat Ratio 16.6 RATIO (10-20); Calcium,Total 9.0 mg/dL (7.6-11.0); Carbon Dioxide 19.6 mmol/L (21.0-32.0); Chloride 105 mmol/L (98-108); Estimated Creatinine Clearance 74.97 ml/min (50-250); Glucose 101 mg/dL (70-99); Potassium 5.8 mmol/L (3.3-5.1)
[2025-03-09 18:35] LABS: Red Blood Cells-Urine 10-25 SEEN /hpf (0-5)
[2025-03-09 18:38] LABS: Squamous Epithelial Cells - UA 0-5 SEEN /hpf (0-5)
[2025-03-09 18:57] VITALS: BP 145/73; PULSE 78; RESP 16; TEMP 36.8; O2SAT 97
== END 2025-03-09 18:57 | disposition home or self-care (01) ==
PROVIDERS: Emergency Provider Emergency Medicine; PCP Internal Medicine; Visit Provider Emergency Medicine
DX: N39.0 Urinary tract infection, site not specified (principal); N40.0 Benign prostatic hyperplasia without lower urinary tract symptoms
CPT/HCPCS: 80048; 81001; 85025; 87077; 87086; 87088; 87186; 99282; A4216